=== PATIENT | female | born 1940 | race Caucasian/White ===

== ENCOUNTER 2016-06-18 08:29 | Outpatient (CLI) | payer MEDICARE ==
[2016-06-18 09:51] LABS: ALT (SGPT) 39 U/L (0-55); AST (SGOT) 22 U/L (5-34); Alkaline Phosphatase 74 U/L (40-150); Anion Gap 14 mmol/L (10-20); BUN (Urea Nitrogen) 14 mg/dL (9.8-20.1); Bilirubin, Direct 0.2 mg/dL (0.1-0.3); Bilirubin, Total 0.5 mg/dL (0.2-1.2); Calc. Creatinine Clearance 0 mL/min (70-130); Calcium 9.7 mg/dL (7.8-10.44); Carbon Dioxide 26 mmol/L (23-31); Chloride 105 mmol/L (98-107); Cholesterol 238 mg/dL (< 200 Desired); Estimated GFR-MDRD 80; Glucose 97 mg/dL (83-110); HDL Cholesterol 80 mg/dL (>60 Neg Risk); LDL Cholesterol, Calculated 139 mg/dL; Potassium 4.3 mmol/L (3.5-5.1); Protein, Total 6.8 g/dL (5.8-8.1); Sodium 141 mmol/L (136-145); Triglycerides 93 mg/dL (Less than 150)
[2016-06-18 11:36] LABS: Band 8 % (5-11); Eosinophils 2 % (0-10); Hemoglobin 13.2 g/dL (12.0-16.0); Lymphocytes 70 % (21-51); MDiff Complete? YES; Mean Corpuscular HGB CONC 33.5 g/dL (32.0-36.0); Mean Corpuscular Hemoglobin 29.6 pg (27.0-31.0); Mean Corpuscular Volume 88.4 fl (81.0-99.0); Monocytes 2 % (0-10); Neutrophil 11 % (42-75); PLT Morphology Comment Appears Decreased; Platelet Count 37 thou/uL (130-400); RBC Distribution Width 12.5 % (11.5-14.5); Reactive Lymphocytes 7 % (0-10); Red Blood Cell (RBC) Count 4.45 mill/uL (4.20-5.40); White Blood Cell (WBC) Count 3.3 thou/uL (4.8-10.8)
== END 2016-06-18 08:30 ==
LOC: MADLABBHPM 08:29
PROVIDERS: ATTEND Family Medicine
DX: C21.0 Malignant neoplasm of anus, unspecified (principal); F41.9 Anxiety disorder, unspecified
CPT/HCPCS: 36415; 80048; 80061; 80076; 84443; 85025

== ENCOUNTER 2016-08-29 09:35 | Outpatient (CLI) | payer MEDICARE, SELFPAY ==
[2016-08-29 10:33] LABS: #Basophils 0.1 thou/uL (0.0-0.2); #Eosinphils 0.1 thou/uL (0.0-0.7); #Lymphocytes 1.4 thou/uL (1.20-3.40); #Monocytes 0.5 thou/uL (0.11-0.59); #Neutrophils 1.6 thou/uL (1.40-6.50); %Basophils 2.2 % (0.0-1.0); %Eosinophils 2.5 % (0.0-10.0); %Lymphocytes 37.6 % (21.0-51.0); %Monocytes 14.1 % (0.0-10.0); %Neutrophils 43.6 % (42.0-75.0); Hemoglobin 13.9 g/dL (12.0-16.0); Mean Corpuscular Hemoglobin 31.4 pg (27.0-31.0); Mean Platelet Volume 8.8 fL (7.4-10.4); Platelet Count 147 thou/uL (130-400); RBC Distribution Width 16.2 % (11.5-14.5); Red Blood Cell (RBC) Count 4.42 mill/uL (4.20-5.40); White Blood Cell (WBC) Count 3.6 thou/uL (4.8-10.8)
[2016-08-29 10:44] LABS: Anion Gap 15 mmol/L (10-20); BUN (Urea Nitrogen) 12 mg/dL (9.8-20.1); Calc. Creatinine Clearance 0 mL/min (70-130); Calcium 9.7 mg/dL (7.8-10.44); Carbon Dioxide 25 mmol/L (23-31); Cardiac Risk 4.9 (Less than 4.5); Chloride 106 mmol/L (98-107); Cholesterol 267 mg/dL (< 200 Desired); Estimated GFR-MDRD 68; Glucose 106 mg/dL (83-110); HDL Cholesterol 55 mg/dL (>60 Neg Risk); LDL Cholesterol, Calculated 176 mg/dL; Potassium 4.1 mmol/L (3.5-5.1); Sodium 142 mmol/L (136-145); Triglycerides 181 mg/dL (Less than 150)
== END 2016-08-29 09:36 | disposition home or self-care (01) ==
LOC: MADLAB 09:35
DX: Z00.00 Encounter for general adult medical examination without abnormal findings (principal)
CPT/HCPCS: 80048; 80061; 85025

== ENCOUNTER 2016-09-29 11:58 | Outpatient (CLI) | payer MEDICARE ==
--- NOTE | 2016-09-29 13:24 | CT ---
CT BRAIN 09/29/2016 COMPARISON: Previous CT from 07/08/2011. TECHNIQUE: Noncontrast enhanced CT images of the brain are obtained. FINDINGS: The CT images demonstrate an area of mixed density, hypodense and hyperdense, in the left posterior frontal lobe, extending into the left temporal lobe. This may represent a primary brain neoplasm. Other possibilities could include metastatic lesions. I do recommend correlation with pre and post contrast enhanced MRI of the brain. There is some mass effect with mild left to right shift, approx imately 3.3 cm. A small area of left basal ganglia and calcification is seen. This is, however, st able and unchanged since the previous comparison CT. IMPRESSION: Area of ill defined density involving portions of the left frontal and temporal lobes. Correlation with pre and post contrast enhanced MRI of the brain is recommended. POS: [facility]
== END 2016-09-29 11:59 | disposition home or self-care (01) ==
LOC: MADLABBHPM 11:58
PROVIDERS: ATTEND Family Medicine
DX: R41.3 Other amnesia (principal)
CPT/HCPCS: 36415; 70450; 82607; 84443